=== PATIENT | female | born 1965 | race Caucasian/White ===

== ENCOUNTER 2021-06-11 13:31 | Outpatient (CLI) | payer BC, SELFPAY ==
--- NOTE | 2021-06-11 13:42 | ECHO_ITS ---
Patient Info Name: Frida Corbin Age: 56 years : 1965 Gender: Female Ht: 65 in Wt: 168 lbs BSA: 1.89 m2 HR: 80 bpm BP: 130 / 75 mmHg Heart Rhythm: Sinus Rhythm Technical Quality: Good Exam Date: 06/11/2021 2:04 PM Exam Location: [facility] Patient Status: Outpatient Admit Date: 06/11/2021 Staff Ordering Physician: Natty Bang Peanut Sheller: Fawn Hawkins RDCS Attending Provider: Natty Bang Referring Physician: Merritt METZ; Exam Type: CA echo doppler color flow Study Info Indications - CARDIAC MURMUR Complete two-dimensional, color flow and Doppler transthoracic echocardiogram is performed. Summary 1. Complete two-dimensional, color flow and Doppler transthoracic echocardiogram is performed. 2. Left ventricular chamber dimension is normal. 3. Left ventricular systolic function is hyperdynamic, estimated at >70%. 4. There is mildly increased left ventricular wall thickness. 5. The left ventricular diastolic function is grade I diastolic dysfunction. 6. E/e' 16 is elevated. 7. Left atrial chamber dimension is mildly enlarged. 8. There is trace tricuspid valve regurgitation. 9. No pulmonary hypertension, estimated pulmonary arterial systolic pressure is 32 mmHg. Left Ventricle E/e' 16 is elevated. Left ventricular chamber dimension is normal. Left ventricular systolic function is hyperdynamic, estimated at >70%. There is mildly increased left ventricular wall thickness. The left ventricular diastolic function is grade I diastolic dysfunction. Right Ventricle Right ventricular chamber dimension is normal. Right ventricular systolic function is normal. Left Atria Left atrial chamber dimension is mildly enlarged. Right Atria Right atrial chamber dimension is normal. Aortic Valve The aortic valve is trileaflet. There is no aortic valve stenosis. There is no aortic valve regurgitation. Pulmonic Valve There is no pulmonic regurgitation. Mitral Valve There is no mitral valve stenosis. There is no mitral valve regurgitation. Tricuspid Valve There is trace tricuspid valve regurgitation. No pulmonary hypertension, estimated pulmonary arterial systolic pressure is 32 mmHg. Pericardium/Pleural There is no pericardial effusion. Inferior Vena Cava Normal inferior vena cava with >50% collapse upon inspiration consistent with normal right atrial pressure, 5 mmHg. Aorta The aortic root size at the sinus of Valsalva is normal. Left Ventricular Outflow Tract Name Value Normal LVOT 2D LVOT Diameter 2.1 cm Pulmonic Valve Name Value Normal PV Doppler PV Peak Gradient 4 mmHg Mitral Valve Name Value Normal MV Doppler
== END 2021-06-11 13:32 | disposition home or self-care (01) ==
LOC: ANHCARD 13:37
PROVIDERS: PCP Internal Medicine; Visit Provider Nurse Practitioner
DX: R01.1 Cardiac murmur, unspecified (principal)
CPT/HCPCS: 93306

== ENCOUNTER → 2023-03-10 11:39 | Outpatient (CLI) | payer BC, SELFPAY ==
--- NOTE | ~2023-03-10 | MR_ITS ---
EXAMINATION: MR knee LT wo con DATE: 03/10/2023 12:10 INDICATION: Left knee pain TECHNIQUE: Magnetic resonance imaging (MRI) of the left knee was performed without intravenous contra st. Sequences included coronal PD-weighted FSE, coronal PD-weighted FS FSE, sagittal T2-weighted FSE , sagittal PD-weighted FS FSE and axial PD weighted fat saturated FSE. COMPARISON: None. FINDINGS: Medial compartment: Increased intrasubstance signal at the body and posterior root of the medial meniscus which does not unambiguously contact the articular surface to meet requirement for meniscal tear. Consistent with mu coid degeneration. Partial-thickness cartilage loss involving greater than 50% the cartilage thicknes s along the anterior weightbearing medial femoral condyle and anterior margin of the medial tibial pl ateau, the latter with mild scattered underlying subarticular edema-like signal change. Lateral compartment: Lateral meniscus is normal. Articular cartilage is normal. Patellofemoral compartment: Deep chondral ulceration with chondral surface regularity but without degenerative subchondral change s at the patellar apical ridge and adjacent lateral half of the medial patellar facet. Additional frida p chondral ulceration with suggestion of a small central subchondral osteophyte at the central aspect of the trochlear groove Ligaments and tendons: Anterior and posterior cruciate ligaments are normal. The medial collateral ligament and fibular elvi ateral ligament complex are normal. Minimal tendinopathy at the distal quadriceps and proximal patell ar tendons. The visualized medial and lateral hamstring tendons as well as the iliotibial band are no rmal. Fluid: Small knee joint effusion. No loose osteochondral bodies identified. 4.6 x 3.3 x 1.0 cm Ko's cyst. Osseous/other: Bone alignment is normal. No fracture or pathologic marrow replacing process. There is prominent dae a in the superficial suprapatellar fat pad can be seen with fat pad impingement syndrome. IMPRESSION: 1. Mild osteoarthritis with moderate to high-grade chondromalacia in the medial and patellofemoral co mpartments. 2. Prominent edema at the superficial suprapatellar fat pad suggestive of fat pad impingement syndrom e. 2. Small left knee joint effusion. Reviewed, dictated and finalized at location A. IMPRESSION: 1. Mild osteoarthritis with moderate to high-grade chondromalacia in the medial and patellofemoral compartments. 2. Prominent edema at the superficial suprapatellar fat pad suggestive of fat p ad impingement syndrome. 2. Small left knee joint effusion.
== END ==
PROVIDERS: PCP Nurse Practitioner; Visit Provider Orthopaedic Surgery
DX: M25.462 Effusion, left knee (principal); M17.12 Unilateral primary osteoarthritis, left knee
CPT/HCPCS: 73721

== ENCOUNTER 2023-05-26 08:04 | Outpatient (CLI) | payer BC, SELFPAY ==
--- NOTE | 2023-05-26 09:29 | ECG_ITS ---
Measurements Intervals [place] Rate: 59 P: 50 MT: 146 QRS: -9 QRSD: 86 T: 6 QT: 449 QTc: 448 Interpretive Statements SINUS BRADYCARDIA POSSIBLE LEFT ATRIAL ENLARGEMENT MINIMAL Q WAVES- HIGH LATERAL LEADS BASELINE ARTIFACT- I, II, AVR BORDERLINE ECG NO PREVIOUS ECG AVAILABLE FOR COMPARISON Electronically Signed On 05-26-2023 9:44:31 CDT by Vasu Cooper D.O.
[2023-05-26 10:02] LABS: Basophils Absolute Auto 0.1 K/mm3 (0.0-0.1); Basophils Percent Auto 0.9 % (0.2-1.2); Eosinophils Absolute Auto 0.2 K/mm3 (0-0.3); Eosinophils Percent Auto 3.9 % (0-4.4); Hematocrit 42.3 % (37.0-47.0); Hemoglobin 14.1 g/dL (12.0-15.0); Immature Granulocyte Absolute 0.02 K/mm3 (0.00-0.031); Immature Granulocyte Percent A 0.4 % (0-0.5); Lymphocytes Absolute Auto 1.13 K/mm3 (0.9-3.2); Lymphocytes Percent Auto 20.1 % (18.3-44.2); Mean Corpuscular HGB Conc 33.3 g/dl (32-36); Mean Corpuscular Hemoglobin 32.8 pg (26-34); Mean Corpuscular Volume 98.4 fl (80-100); Mean Platelet Volume 9.8 fl (7.4-10.4); Monocytes Absolute Auto 0.6 K/mm3 (0.1-0.6); Monocytes Percent Auto 10.5 % (2.6-8.5); Neutrophils Absolute Auto 3.6 K/mm3 (1.3-6.7); Neutrophils Percent Auto 64.2 % (45.5-73.1); Platelet Count Result 319 k/mm3 (150-375); Red Cell Distribution Width 12.2 % (11.5-14.5); White Blood Count 5.6 K/mm3 (4.5-10.0)
[2023-05-26 10:09] LABS: Albumin Level 4.7 g/dL (3.5-5.1); Estimated Glomerular Filt Rate > 60; Glucose 95 mg/dL (65-110)
[2023-05-26 10:10] LABS: Urine Cotinine NEGATIVE
[2023-05-26 10:26] LABS: Hemoglobin A1C 4.9 % (<5.7)
== END 2023-05-26 08:05 | disposition home or self-care (01) ==
LOC: ANHSURGERY 08:12
PROVIDERS: PCP Nurse Practitioner; Visit Provider Orthopaedic Surgery
DX: Z01.818 Encounter for other preprocedural examination (principal); M17.12 Unilateral primary osteoarthritis, left knee; R93.1 Abnormal findings on diagnostic imaging of heart and coronary circulation
CPT/HCPCS: 80307; 82040; 82565; 82947; 83036; 85025; 86850; 86900; 86901; 87081; 93005

== ENCOUNTER 2023-06-06 01:01 | Day surgery (SDC) | payer BC, SELFPAY ==
[2023-05-26 08:18] VITALS: BMI 28.8
--- NOTE | 2023-05-26 08:54 | PC.NURSE ---
Report to the Outpatient Waiting Room, entrance under the green pavilion located off [facility], at time _0600 on date __06/06/23 . Planned Procedure Time: _0730 . Time changes happen often and if your time is changed the preop area will call you the afternoon before. - You and your visitor will be asked to self-screen and do not enter if you have any COVID symptoms. - A mask is optional within the hospital at this time. Patients may have clear liquids (water, carbonated beverages, clear teas, apple juice) until 3 hours prior to surgery with a maximum of 20 ounces. - No food from midnight until time of surgery - Infants may have breast milk until 4 hours before surgery, formula 6 hours prior to surgery. - Children will be allowed to drink immediately following surgery. If applicable, please bring a bottle or sippy cup to assist with drinking. Juice, water, soda, and popsicles are readily available. For infants on formula, please bring formula the day of surgery. Pacifiers are allowed. Take the following medications with a SIP of water the morning of surgery: ___FLUOXETINE,LEVOTHYROXINE DO NOT STOP ANY OF YOUR OTHER PRESCRIPTION MEDICATIONS PRIOR TO SURGERY ?EXCEPT THE FOLLOWING Medications to discontinue per physician ____ALL VITAMINS 3 DAYS PRE OP.LAST DOSE 06/02/23 Please no make-up, nail vincentian, hairspray, perfume, deodorant, or body powder the day of surgery. No jewelry (including any body piercings) or valuables the day of surgery, leave them at home. Please take a shower or bath the night before, or the morning of, surgery with an antibacterial soap. Wear comfortable, loose fitting clothing. Children are encouraged to wear pajamas. - Jewelry must be removed prior to entering the operating room. Rings and piercings that are not removed may be cut off. - The hospital will not accept responsibility for valuables. - Please leave all valuables, including medications, at home the day of surgery. If you are going home after surgery, a licensed medical driver must drive you home. - NO public transportation without another adult if you receive anesthesia. - We recommend that an adult stay with you for 24 hours following discharge. - We also recommend that you do not drive, make important decision, drink alcoholic beverages, or take any drugs that were not prescribed by your health care provider for at least 24 hours after your discharge time. For Pediatric surgeries, we recommend two adults accompany the child home. Follow any additional instructions given to you from your surgeon. If you or anyone in your household have experienced Covid symptoms in the past week, please notify your surgeon or the nurse liaison at the phone number below for possible testing. VERBAL AND WRITTEN instructions given to PATIENT and asked if any additional questions and then verbalized understanding. Patient advised to call surgeon office or pre surgery nurse liaison [phone] if any additional questions.
[2023-05-26 09:10] VITALS: BP 148/95; PULSE 66; RESP 18; TEMP 36.4; O2SAT 100
[2023-06-06] VITALS (15 sets, daily range): BP systolic 108–147; BP diastolic 63–99; PULSE 61–77; RESP 12–18; TEMP 36.3–37.3; O2SAT 93–100
--- NOTE | ~2023-06-06 | XR_ITS ---
EXAMINATION: [id number] DATE: 06/06/2023 10:05 INDICATION: Left knee arthroplasty. Postop. TECHNIQUE: 2 views of left knee on 3 radiographs were obtained. COMPARISON: None. FINDINGS: There is a medial compartment arthroplasty in near-anatomic alignment. No fracture. There a re tiny osteophytes in the lateral and patellofemoral compartments. There is gas in the soft tissues, consistent with recent surgery. IMPRESSION: 1. Medial compartment arthroplasty in near-anatomic alignment. Reviewed, dictated and finalized at location A.
[2023-06-06] MEDS: ACETAMINOPHEN 500 MG TABLET 1000 MG PO (07:00)
[2023-06-06] MEDS: LACTATED RINGERS 1,000 ML 30 ML IV CONT ×2 (07:00→10:30)
[2023-06-06] MEDS: TRANEXAMIC ACID 1,000MG/ISO100 1,000 MG/100 ML BAG 200 MG IVPB (07:00)
--- NOTE | 2023-06-06 07:02 | WPDANESEPPF ---
Anes - Initial Pre Proc Eval Procedure: Operation Date: 06/06/23 07:30 Proposed Procedures p Left Knee Unicompartmental Arthroplasty - Derrick Shahid MD Date/Time: 06/06/23 07:02 Surgeon: Derrick Shahid MD Pre Op Diagnosis: OA left knee Patient Data Age: 58 Gender: F Height: 1.66 m Weight: 79.7 kg Last Vital Signs Temp 36.4 C 05/26/23 09:10 Pulse 66 05/26/23 09:10 Resp 18 05/26/23 09:10 BP 148/95 H 05/26/23 09:10 Pulse Ox 100 05/26/23 09:10 O2 Del Method Room Air 05/26/23 09:10 Allergies Allergy/AdvReac Type Severity Reaction Status Date / Time No Known Allergies Allergy Verified 06/01/23 10:14 Home Medications Medication Instructions Recorded Confirmed Type cholecalciferol (vitamin D3) 100 250 mcg PO DAILY 07/02/22 06/01/23 History mcg (4,000 unit) tablet fluoxetine 10 mg capsule 10 mg PO DAILY 07/02/22 06/01/23 History levothyroxine 112 mcg tablet 112 mcg PO DAILY #90 tabs 12/02/22 06/01/23 Rx fluticasone propionate 50 1 spray intranasal DAILY PRN 01/05/23 06/01/23 History mcg/actuation nasal Allergy Symptoms spray,suspension (Flonase Allergy Relief) lisinopril 20 mg tablet 20 mg PO DAILY #90 tabs 01/05/23 06/01/23 Rx ascorbic acid (vitamin C) 1,000 mg 1 g PO DAILY 05/26/23 06/01/23 History tablet rivaroxaban 10 mg tablet (Xarelto) 10 mg PO DAILY PE prophylaxis s/p 06/01/23 06/01/23 Rx joint replacement #14 tabs Patient hx anesthesia problems: none Family hx anesthesia problems: none Results Review: All pre-operative results and documents have been reviewed as part of the pre-operative evaluation. [facility] Past Medical History Medical History Anxiety Degenerative arthritis of knee, bilateral Hypertension Thyroid disorder Surgical History Surgical History Hx of tonsillectomy 1971 Family History Family History Father Diabetes mellitus Hypertension Mother Hypertension Grandparent Thyroid adenoma Social History Social History Smoking status: Never smoker Additional smoking assessment comments: DENIES ANY FORM OF TOBACCO USE Alcohol intake: current Drinks per week: 5 Alcohol use details: wine Substance use: never Substance use type: does not use Lack of Transportation: No Lack of Food: Never True Current Housing: I Have Housing Concerned About Future Housing: No Difficulty Paying Gas/Electric Bills: No Difficulty Paying for Meds: No Currently Unemployed: No Education: Bachelor's Degree Difficulty w/ Childcare or Family Care: No Living arrangements: with family Occupation/Education: retired Gender identity (if verbalized by the patient): Female Spiritual care concerns: No Anes - Eval Final PreProcedure Day of Procedure 06/06/23 07:02 Patient weight: overweight Heart: regular rate and rhythm Lungs: clear to auscultation Airway: Mallampati scale class II Neurological: alert and oriented Last oral intake: >/= 8 hours ASA classification: II Emergent: no Anesthetic plan: proceed Anesthesia type and monitoring: general LMA and standard monitoring Results Review: All pre-operative results and documents have been reviewed as part of the pre-operative evaluation. Informed Consent: The patient's anesthetic plan and its attendant risks and benefits were discussed with the patient/family/POA. Questions were solicited and answers provided to the satisfaction of the patient/family/POA.
--- NOTE | 2023-06-06 07:08 | WPDHPUPDATE1 ---
History and Physical Update Update Date/Time: 06/06/23 07:08 History and Physical has been reviewed, including an updated exam of the patient. There are NO changes in the patient's condition. Risks, benefits, and alternatives have been discussed and questions answered. Patient agrees to proceed with procedure.
--- NOTE | 2023-06-06 07:20 | WPDANESPNB ---
Anes - Peripheral Nerve Block Date/Time: 06/06/23 07:20 I have discussed with the patient/family/POA the placement of a peripheral nerve block for post-operative pain management, including associated risks, benefits, complications, and side effects. Alternative methods of post-operative analgesia were detailed. Questions were solicited and answers provided to the satisfaction of the patient/family/POA. Time-Out: A pre-procedural Time-Out was completed immediately before starting the procedure and confirmed: Patient Identification, Site, Procedure, Patient Position and the Availability of Requisite Equipment. Clinical Indications: Acute post-operative pain management requested by the operative surgeon. Nerve Block Insertion Note Anes-nerve block: adductor canal left Patient position: supine Skin prep: chlorhexidine Needle: 22 gauge, stimulating, insulated echogenic needle. Needle length: 80 mm Technique: ultrasound Injectate: bupivacaine 0.5% with epi 5 mcg/ml (30cc no epi) and dexamethasone (mg) (8) Observations: tolerated well Complications: none Procedure start time:: 714 Procedure end time:: 719
[2023-06-06] MEDS: ceFAZolin 2 GM/D5W 50 ML 2 GM/50 ML BAG IVPB ×3 (07:26→23:11)
[2023-06-06] MEDS: ceFAZolin SODIUM 1 GM VIAL IV PUSH (09:34)
--- NOTE | 2023-06-06 09:55 | P.OP_ITS ---
Procedure Note - Detailed Date of Procedure 06/06/23 Pre-op Diagnosis OA left knee Post-op Diagnosis Same Procedure Performed Left knee medial unicompartmental replacement Surgeon Derrick Shahid MD Anger Control Counselor Elsi Yang Anesthesia General and Regional Description of Procedure The patient was identified and the proper site identified. In the preop holding area the anesthesia team performed a left lower extremity block. She was then taken to the operating room and transferred to the OR table placing her supine taking care to pad his torso and extremities. After general anesthetic induction and intubation. a nonsterile tourniquet was placed high on the left thigh. The extremity was positioned, prepped, and draped in the usual sterile fashion. The extremity was exsanguinated and the tourniquet was inflated to 300 mmHg remaining up for approximately 56 minutes. An anterior midline incision was made and sharp dissection carried down through the subcutaneous tissue to the extensor mechanism. A modified medial parapatellar arthrotomy was performed. The articular and meniscal cartilage of the lateral compartment was inspected and noted to be in excellent shape. Anterior and posterior cruciate ligaments were in continuity. There were extensive degenerative changes medial compartment and milder patellofemoral changes. The marginal osteophytes were removed from the notch and the medial aspect of the medial femoral condyle, and the remaining meniscal tissue was removed. The femur was sized to a small. With the appropriate spoon and tibial guide, a tibial resection was made. This was sized to AA. Using the mill, the flexion and extension gaps were balanced. A trial reduction was undertaken. The range of motion of the knee was noted to be from full extension to 0-120 ? of flexion with excellent stability through range of motion. The polyethylene insert trac ked nicely. The trial components were removed. The real small femur and size AA tray for the left knee were cemented into place. The knee was held in about 30? of flexion while the cement cured. The tourniquet was released and excess cement was removed from the joint. Hemostasis was carried out. The knee was flushed with a copious amount of irrigation. After trialing, the appropriate real size four insert for the femoral component was inserted and the stability again assessed. The knee was noted to be stable as it was taken through range of motion. The periarticular tissues were injected with 60 mL of arthroplasty solution after a 3 minutes Betadine bath wound. Surgicel powder was applied deep to and superficial to the extensor mechanism. The extensor mechanism was repaired with 0 looped PDS suture, the subcu with 3-0 Monocryl, 2-0 Quill and tissue adhesive for the skin. A sterile dressing was applied. The patient tolerated the procedure well, was awakened, extubated, and taken to recovery room in stable condition. Estimated Blood Loss 100 Tourniquet Time 56 Drains No Packing No Pathology None sent Condition Stable Disposition PACU [facility] Billing Surgery - Charge Forward: Surgery Billing ([id number])
[2023-06-06] MEDS: fentaNYL CITRATE INJ (*CRX) 100 MCG/2 ML VIAL 25 MCG IV PUSH ×2 (10:28→10:31)
[2023-06-06] MEDS: SODIUM CHLORIDE 0.9% IV 1,000 ML 125 ML IV CONT (12:04)
[2023-06-06] MEDS: KETOROLAC 15 MG/ML VIAL (*BKC) IV PUSH ×3 (12:45→23:12)
--- NOTE | 2023-06-06 13:22 | PM.PNORT ---
Progress Note: A&P Assessment and Plan (1) S/P left unicompartmental knee replacement: Code(s): Z96.652 - Presence of left artificial knee joint Status: Acute Plan Doing well post surgery. Begin therapy today. Likely home tomorrow. Surgery discussed. Subjective Subjective Date/Time Seen: 06/06/23 13:22 Principal diagnosis: Left knee unicompartmental replacement Interval history: Patient comfortable. Exam Const: General: cooperative Extrem: Other: Left knee dressing dry. Objective Data Vital Signs Vital Signs: Vital Signs - 24 hr 06/06/23 07:15 06/06/23 09:49 06/06/23 10:00 Temperature 97.4 F L 97.3 F L Pulse Rate 68 68 64 Respiratory Rate 14 16 15 Blood Pressure 147/99 H 115/82 118/72 Pulse Oximetry 100 100 100 Oxygen Delivery Room Air Simple Face Mask Simple Face Mask Oxygen Flow Rate 10 10 06/06/23 10:13 06/06/23 10:15 06/06/23 10:30 Temperature Pulse Rate 63 69 Respiratory Rate 18 12 Blood Pressure 120/75 120/79 Pulse Oximetry 100 95 93 Oxygen Delivery Room Air Room Air Room Air Oxygen Flow Rate 06/06/23 10:45 06/06/23 10:54 06/06/23 11:20 Temperature 97.7 F Pulse Rate 71 65 70 Respiratory Rate 13 13 16 Blood Pressure 108/76 113/75 125/75 Pulse Oximetry 95 97 97 Oxygen Delivery Room Air Room Air Oxygen Flow Rate 06/06/23 11:35 06/06/23 12:05 Temperature 97.9 F 97.7 F Pulse Rate 68 65 Respiratory Rate 16 16 Blood Pressure 112/72 136/63 Pulse Oximetry 98 96 Oxygen Delivery Oxygen Flow Rate Intake/Output Intake/Output: Intake & Output 06/03/23 06/04/23 06/05/23 06/06/23 23:59 23:59 23:59 23:59 Intake Total 490 / 490 Balance 490 / 490 Meds/Results Medications: Active Medications Generic Name Dose Route Start Last Admin Trade Name Freq PRN Reason Stop Dose Admin Ascorbic Acid 1,000 mg 06/07/23 09:00 Ascorbic Acid 500 Mg Tablet PO DAILY [facility] Bisacodyl 10 mg 06/06/23 10:58 Bisacodyl 10 Mg Suppository RECTAL DAILY PRN Constipation Famotidine 20 mg 06/06/23 21:00 Famotidine 20 Mg Tablet PO Q12HR [facility] Fluoxetine HCl 10 mg 06/07/23 09:00 Fluoxetine Hcl 10 Mg Capsule PO DAILY [facility] Fluticasone Propionate 1 spray 06/06/23 10:58 Fluticasone Propionate 0.05% Na Spr 16 Gm Btl (*Bkc) NASAL DAILY PRN Allergy Symptoms Sodium Chloride 1,000 mls @ 125 mls/hr 06/06/23 10:58 06/06/23 12:04 Normal Saline Iv IV CONT 06/06/23 18:57 125 mls/hr .Q8H [facility] Administration Cefazolin Sodium 2 gm in 50 mls @ 100 mls/hr 06/06/23 15:00 Ancef 2 Gm/D5w 50 Ml IVPB 06/07/23 07:29 Q8H [facility] Ketorolac Tromethamine 15 mg 06/06/23 12:00 06/06/23 12:45 Ketorolac 15 Mg/Ml Vial (*Bkc) IV PUSH 06/07/23 12:01 15 mg Q6HR [facility] Administration Levothyroxine Sodium 112 mcg 06/07/23 06:30 Levothyroxine Sodium 112 Mcg Tablet PO DAILY@0630 [facility] Lisinopril 20 mg 06/07/23 09:00 Lisinopril 20 Mg Tablet PO DAILY [facility] Naloxone HCl 0.1 mg 06/06/23 10:58 Naloxone Hcl 0.4 Mg/Ml Vial IV PUSH Q2M PRN Opiate Reversal Ondansetron HCl 4 mg 06/06/23 10:58 Ondansetron Inj 4 Mg/2 Ml Vial IV PUSH Q4H PRN Nausea And Vomiting Oxycodone HCl 5 mg 06/06/23 10:58 Oxycodone Hcl (*Crx) 5 Mg Tab Ir PO Q4HR PRN Pain 7-10 Oxycodone/Acetaminophen 1 tablet 06/06/23 13:00 Oxycodone/Acetaminophen (*Crx) 5-325 Mg Tablet PO 06/08/23 12:59 Q4HR [facility] Polyethylene Glycol 17 gm 06/07/23 09:00 Polyethylene Glycol 3350 17 Gm Powd.Pack PO QAM [facility] Rivaroxaban 10 mg 06/07/23 09:00 Rivaroxaban 10 Mg Tablet PO 06/18/23 09:01 [facility] Senna/Docusate Sodium 2 tab 06/06/23 17:00 Senna/Docusate Sodium Tablet PO BID [facility] Vitamin D 4,000 units 06/07/23 09:00 Cholecalciferol 1,000 Units Tablet PO DAILY [facility] Radiology Results: ITS Impressions Knee X-Ray 06/06/23 10:13 I
--- NOTE | 2023-06-06 13:40 | ADMGEN ---
This patient, Frida Corbin, was admitted to [facility] Surg Room 328-01. Patient/family oriented to hospital policies and general routines including ID bracelet, bed and alarms, visiting hours, pain management, procedures, bathroom and other care routines, personal items, smoking policy, room service/diet, and visiting hours. Information on how to activate the Rapid Response Team has been discussed. Patient/Family are encouraged to report perceived risks to care and to ask questions if they do not understand what they are told or what they should do.
[2023-06-06] MEDS: SENNA/DOCUSATE SODIUM TABLET 2 TAB PO (17:12)
[2023-06-06] MEDS: FAMOTIDINE 20 MG TABLET PO (20:25)
[2023-06-07] MEDS: oxyCODONE/ACETAMINOPHEN (*CRX) 5-325 MG TABLET 1 TABLET PO ×3 (00:29→08:08)
[2023-06-07 04:43] VITALS: BP 133/85; PULSE 65; RESP 18; TEMP 37.3; O2SAT 99
[2023-06-07] MEDS: KETOROLAC 15 MG/ML VIAL (*BKC) IV PUSH (06:09)
[2023-06-07] MEDS: ceFAZolin 2 GM/D5W 50 ML 2 GM/50 ML BAG IVPB (06:09)
[2023-06-07] MEDS: LEVOTHYROXINE SODIUM 112 MCG TABLET PO (06:10)
--- NOTE | 2023-06-07 07:05 | PM.DS ---
DS: Admitting Diagnosis Discharge Date June 07, 2023 Admitting Diagnosis Osteoarthritis left knee DS: Discharge Diagnosis Discharge Diagnosis (1) S/P left unicompartmental knee replacement: Code(s): Z96.652 - Presence of left artificial knee joint Status: Acute Plan Patient will be discharged home. Therapy will be formed on her own. 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 Follow-up with me will be in two weeks for wound check. She was instructed to call sooner with any questions or concerns. DS: Summary Hospital Course Reason for hospitalization: Observation following outpatient procedure Hospital Course: Following the patient's left knee unicompartmental replacement on June 06, 2023 she was admitted to the floor for observation. Therapy was instituted and she did very well. She is being discharged home on postop day one. Status at Discharge Functional status at discharge: uses cane/walker Overall status at discharge: patient is not back to baseline Time Spent with Patient Time attestation: Total time spent providing and/or coordinating discharge services: Exam Const: General: cooperative, no acute distress and alert Nutritional Appearance: other Orientation/consciousness: patient oriented x3 Limitations: no limitations HENMT: Head: normal to inspection Chest: Chest palpation & inspection: normal inspection of the chest Resp: Effort & Inspection: normal respiratory effort and able to speak in complete sentences GI: Inspection: other Neuro: General: patient oriented x3 Cognition (Neuro): normal cognition Speech: normal speech Gait exam (Neuro): Other gait observations present Extrem: General: normal to inspection and other Other: Exam of Psych: Appearance: grossly normal Mental Status: mental status grossly normal Discharge Plan Discharge Patient Disposition: Home, Self-Care Discharge Instructions: 3 times daily for 20 minutes each time, reclining in bed with ice packs over the incision and a pillow underneath the calf of the affected leg, not under the knee. Your wound is glued so it is okay to remove the dressing, get into the shower and get the wound wet in two days. Be sure to read through all the information that came from a my office and the hospital. Most of the answers you will need can be found that material. Call the office with any questions that you cannot find answers to, or concerns you may have. After the Xarelto is completed, start taking one coated 325 mg aspirin daily and do this for four more weeks. Please call [facility] at as soon as possible to arrange for/verify your follow-up appointment to be seen in 2 weeks. Also, call the office with any orthopedic/surgical related questions prior to follow-up. Be sure to get up and move around several times daily but do not overdo it. You will be 50% weight-bearing left lower extremity using a walker for a total of six weeks. Take the arthritis formula Tylenol 650 mg tablet on an 8 hour schedule. A good 8 hour schedule is: 6:00 a.m., 2:00 p.m., 10:00 p.m. you may take the prescribed pain medication along with the Tylenol; it is not to be taken instead of the Tylenol. I would like for you to take the Tylenol on a schedule for 2-3 weeks. Use the laxative Senekot S twice daily for 2 weeks after discharge while taking the prescription pain medication. Use Miralax once daily for 2 weeks after discharge while taking the prescription pain medication. Once the Xarelto is completed, if you wish to supplement your pain regimen with [id number] anti-inflammatory such as Advil or Aleve, that is fine. Follow the label instructions. Do not take this medicine if you have an allergy to NSAIDs. Stand Alone Forms: General Discharge Instructions Follow-up/Referrals: Derrick Shahid MD [Physician] - Discharge Medications: New celecoxib [Celebrex] 2
[2023-06-07] MEDS: polyethylene glycoL 3350 17 GM POWD.PACK PO (08:07)
[2023-06-07] MEDS: CHOLECALCIFEROL 1,000 UNITS TABLET 4000 UNITS PO (08:07)
[2023-06-07] MEDS: lisinopriL 20 MG TABLET PO (08:08)
[2023-06-07] MEDS: RIVAROXABAN 10 MG TABLET PO (08:08)
[2023-06-07] MEDS: ASCORBIC ACID 500 MG TABLET 1000 MG PO (08:08)
[2023-06-07] MEDS: FAMOTIDINE 20 MG TABLET PO (08:08)
[2023-06-07] MEDS: SENNA/DOCUSATE SODIUM TABLET 2 TAB PO (08:08)
[2023-06-07] MEDS: FLUoxetine HCL 10 MG CAPSULE PO (08:12)
[2023-06-07 08:43] VITALS: BP 128/80; PULSE 63; RESP 18; TEMP 36.2; O2SAT 98
== END 2023-06-07 09:50 | disposition home or self-care (01) ==
LOC: ANHSURGERY 09:50 → ANH3MEDSUR 11:08
PROVIDERS: PCP Nurse Practitioner; Visit Provider Orthopaedic Surgery
PROC: (CPT 27446; principal; 2023-06-06 07:30)
DX: M17.12 Unilateral primary osteoarthritis, left knee (principal); G89.18 Other acute postprocedural pain; F41.9 Anxiety disorder, unspecified; I10 Essential (primary) hypertension; E07.9 Disorder of thyroid, unspecified; Z79.01 Long term (current) use of anticoagulants; Z96.652 Presence of left artificial knee joint
CPT/HCPCS: 64447; 27446; 73560; 80307; 82040; 82565; 82947; 83036; 85025; 86850; 86900; 86901; 87081; 93005; 97110; 97116; 97161; 97165; 97530; 97535; A9270; C1713; C1776; J0171; J0690; J1100; J1170; J1885; J2250; J2270; J2405; J2704; J2795; J3010; J7030; J7120